=== PATIENT | male | born 1945 | race Caucasian/White ===

== ENCOUNTER → 2022-10-05 12:43 | Outpatient (REF) | payer MEDICARE, OTHER, SELFPAY ==
--- NOTE | 2022-10-05 12:54 | CA_ITS ---
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 Technically limited study due to off axis views 2. LV systolic function appears preserved with LV ejection fraction 55-60% with mild LVH with impaired relaxation filling pattern 3. Limited visualization cardiac valve with normal cardiac valvular Doppler 4. Normal measured RV systolic pressure 5. No gross pericardial effusion Findings Procedure Information Contrast agent, definity, is being given per protocol without apparent complications. Left Ventricle Normal left ventricular size and systolic function. There is mildly increased left ventricular wall thickness. The visually estimated ejection fraction is between 55-60%. Regional wall motion abnormalities can not be excluded due to suboptimal endocardial definition. Spectral Doppler is indicative of an impaired relaxation filling pattern. Right Ventricle The right ventricle was not well visualized. Atria The left atrium was not well visualized. Interatrial shunt cannot be excluded. The right atrium was not well visualized. Aortic Valve The aortic valve was not well visualized. There is no aortic valve stenosis. There is no aortic valve regurgitation. Mitral Valve The mitral valve was not well visualized. There is trace mitral valve regurgitation. There is no mitral valve stenosis. Pulmonic Valve The pulmonic valve was not well visualized. Tricuspid Valve The tricuspid valve was not well visualized. There is trace tricuspid valve regurgitation. The right ventricular systolic pressure is normal. The right ventricular systolic pressure is 18 mmHg. Normal right atrial pressure. There is no evidence of pulmonary hypertension. Great Vessels The aorta was not well visualized. The pulmonary artery was not well visualized. Venous The inferior vena cava is normal in size and collapses greater than 50% with inspiration. Pericardium/Pleural There is no evidence of pericardial effusion. Prior Study Comparison No prior study available for comparison. Measurements 2D Linear Measurements IVSd: 1.28 0.6-0.9/0.6-1.0 cm LVIDd: 3.47 3.9-5.3/4.2-5.9 cm LVIDd Index: 2.08 2.4-3.2/2.2-3.1 cm/m2 LVIDs: 2.43 2.0-3.6 cm LVPWd: 1.29 0.7-1.1 cm Ao Root: 3.30 2.1-3.5 cm LA Diam: 2.20 2.7-3.8/3.0-4.0 cm LAIDs Index: 1.32 1.5-2.3 cm/m2 LV Mass: 185.71 67-162/88-224 g LV Mass Index: 111.20 43-95/49-115 g/m2 LVOT Diam: 2.10 3.0+(-)1.3 cm Mitral Valve MV Pk E: 0.51 MV PK A: 0.76 MV Decel Time: 133.00 E/A: 0.70 E'Lateral: 9.68 E'Medial: 6.20 E/E' Med: 8.20 E/E' Lat: 5.20 PHT: 39.00 MVA PHT: 5.64 Decel [place]: 3.81 Aortic Valve AoV Pk Malcolm: 1.25 AoV Mn Malcolm: 0.71 AoV VTI: 0.23 AoV Pk Grad: 6.00 Aov Mn Grad: 3.00 MARIANNE Cont.VTI: 2.48 LVOT LVOT Pk Malcolm: 0.88 LVOT Mn Malcolm: 0.53 LVOT VTI: 0.17 LVOT Pk Grad: 3.00 LVOT Mn Grad: 1.00 LVOT Diam: 2.10 LVOT Area: 3.46 Diastolic Function MV Pk E: 0.51 MV Pk A: 0.76 E/A: 0.70 E'Medial: 6.20 E/E' Med: 8.20 E' Laterial: 9.68 E/E' Lat: 5.20 Right Ventricle TAPSE (mm): 22.00 TVS' Malcolm: 17.00 Tricuspid Valve TR Pk Malcolm: 1.94 TR Pk Grad: 15.00 RA Press: 3.00 RVSP: 18.00 Great Vessels Aorta Ao Root-2D: 3.30 2.0-3.7 cm Pulmonary Valve PV Pk Malcolm: 1.07 Peak PV Grad: 5.00 Updated in Other Vendor System with Status of Final Cheng Ku MD electronically signed on 10/05/2022 3:45:55 PM with status of Final
== END ==
LOC: HO.CARD 12:43
PROVIDERS: PCP Family Medicine; Visit Provider Family Medicine
DX: I63.9 Cerebral infarction, unspecified (principal)
CPT/HCPCS: 93306; Q9957

== ENCOUNTER → 2022-10-05 12:54 | Outpatient (BNV) | payer MEDICARE, OTHER, SELFPAY | PROVIDERS: PCP Family Medicine; Visit Provider Internal Medicine Cardiovascular Disease | DX: I51.7 Cardiomegaly (principal) | CPT/HCPCS: 93306 ==